=== PATIENT | male | born 1990 ===

== ENCOUNTER 2021-08-20 10:00 | Outpatient (REF) | payer OTHER, SELFPAY ==
[2021-08-21 08:34] LABS: MANUAL DIFF FLAG NO
[2021-08-21 08:37] LABS: Appearance Urine HAZY; Color Urine YELLOW; Glucose Urine UA NEG (NEG); Urine Blood 3+ (NEG); Urine Protein NEG (NEG-TRACE)
[2021-08-21 08:38] LABS: Leukocyte Esterase Urine NEG (NEG); Nitrite Urine NEG (NEG); Urine Ketones NEG (NEG)
[2021-08-21 08:39] LABS: Carbon Dioxide 27 mmol/L (22-29); Chloride 107 mmol/L (96-108); Hematocrit 45.9 % (42.0-52.0); Hemoglobin 15.4 g/dl (14.0-18.0); Mean Corpuscular HGB Conc 33.6 g/dl (31.0-36.0); Mean Corpuscular Hemoglobin 29.7 pg (27.0-33.0); Mean Corpuscular Volume 88.4 fL (80.0-98.0); Potassium 4.5 mmol/L (3.3-5.1); Red Blood Count 5.19 X10*6/uL (4.60-5.80); Sodium 142 mmol/L (135-145); White Blood Count 5.6 X10*3/uL (4.8-10.8)
[2021-08-21 08:40] LABS: Alanine Aminotransferase 36 U/L (0-40); Anion Gap 13 (12-20); Aspartate Amino Transferase 21 U/L (5-37); Basophils Percent Auto 1.3 % (0-2); Bilirubin Total 0.3 mg/dL (0.0-1.0); Blood Urea Nitrogen 14 mg/dL (9-16); Eosinophils Percent Auto 6.3 % (0-4); Estimated Glomerular Filt Rate > 60; Glucose Fasting 113 mg/dL (60-99); Lymphocytes Percent Auto 31.4 % (20-40); Monocytes Percent Auto 11.1 % (2-11); Neutrophils Percent Auto 47.8 % (45-73); Platelet Count 208 X10*3/uL (160-400); Red Cell Distribution Width 12.8 % (11.0-16.0)
[2021-08-21 08:41] LABS: Albumin Level 4.1 g/dL (3.5-5.0); Alkaline Phosphatase 65 U/L (39-117); Cholesterol 171 mg/dL; HDL Cholesterol 43 mg/dL; Imm Gran Abs Auto 0.12 X10*3/uL (0.00-0.03); LDL Cholesterol Calculated 111 mg/dl; Lymphocytes Absolute Auto 1.8 X10*3/uL (1.2-4.9); Neutrophils Absolute Auto 2.7 x10*3/uL (2.0-8.3); Triglycerides 89 mg/dL
[2021-08-21 08:42] LABS: Basophils Absolute Auto 0.1 X10*3/uL (0.0-0.2); Eosinophils Absolute Auto 0.4 X10*3/uL (0.0-0.4); Monocytes Absolute Auto 0.6 X10*3/uL (0.1-1.2)
[2021-08-21 08:43] LABS: Mucus Urine TRACE /LPF; Squamous Epithelial Cell Urine TRACE /LPF; WBC Urine 0-2 /HPF (0-4)
== END 2021-08-20 10:01 | disposition home or self-care (01) ==
LOC: HO.LNP 10:00
PROVIDERS: Visit Provider Internal Medicine
DX: Z00.00 Encounter for general adult medical examination without abnormal findings (principal)
CPT/HCPCS: 80053; 80061; 81001; 85025

== ENCOUNTER 2022-08-15 10:36 | Outpatient (REF) | payer OTHER, SELFPAY ==
[2022-08-15 10:45] LABS: MANUAL DIFF FLAG NO
[2022-08-15 11:38] LABS: Basophils Absolute Auto 0.1 X10*3/uL (0.0-0.2); Basophils Percent Auto 1.2 % (0-2); Eosinophils Absolute Auto 0.5 X10*3/uL (0.0-0.4); Eosinophils Percent Auto 7.8 % (0-4); Hematocrit 47.2 % (42.0-52.0); Hemoglobin 16.3 g/dl (14.0-18.0); Imm Gran Abs Auto 0.03 X10*3/uL (0.00-0.03); Imm Gran Pct Auto 0.5 % (0.0-0.4); Lymphocytes Percent Auto 32.4 % (20-40); Mean Corpuscular HGB Conc 34.5 g/dl (31.0-36.0); Mean Corpuscular Hemoglobin 29.6 pg (27.0-33.0); Mean Corpuscular Volume 85.8 fL (80.0-98.0); Mean Platelet Volume 11.6 fL (9.4-12.4); Monocytes Absolute Auto 0.5 X10*3/uL (0.1-1.2); Monocytes Percent Auto 7.8 % (2-11); Neutrophils Absolute Auto 3.1 x10*3/uL (2.0-8.3); Neutrophils Percent Auto 50.3 % (45-73); Platelet Count 208 X10*3/uL (160-400); Red Cell Distribution Width 12.5 % (11.0-16.0); White Blood Count 6.1 X10*3/uL (4.8-10.8)
[2022-08-15 11:41] LABS: Appearance Urine Clear; Color Urine Yellow; Glucose Urine UA Negative (Negative); Leukocyte Esterase Urine Negative (Negative); Nitrite Urine Negative (Negative); Specific Gravity - Urine <= 1.005 (1.005-1.025); Urine Blood Negative (Negative); Urine Ketones Negative (Negative); Urine Protein Negative (Neg-Trace)
[2022-08-15 11:47] LABS: Bacteria Urine None Seen (None Seen); Hyaline Casts Urine 0-2 /LPF (0-2); RBC Urine 0-2 /HPF (0-2); Squamous Epithelial Cell Urine 0-2 /HPF (0-2); WBC Urine 0-5 /HPF (0-5)
[2022-08-15 11:53] LABS: Alanine Aminotransferase 33 U/L (0-40); Albumin Level 4.4 g/dL (3.5-5.0); Alkaline Phosphatase 74 U/L (39-117); Anion Gap 11 (12-20); Aspartate Amino Transferase 25 U/L (5-37); Bilirubin Total 0.6 mg/dL (0.0-1.0); Blood Urea Nitrogen 18 mg/dL (9-16); Calcium 10.3 mg/dL (8.4-10.2); Carbon Dioxide 30 mmol/L (22-29); Chloride 102 mmol/L (96-108); Cholesterol 189 mg/dL; Estimated Glomerular Filt Rate > 60; Glucose Fasting 117 mg/dL (60-99); HDL Cholesterol 35 mg/dL; LDL Cholesterol Calculated 133 mg/dl; Potassium 4.2 mmol/L (3.3-5.1); Sodium 139 mmol/L (135-145); Total Protein 7.4 g/dL (6.5-8.0); Triglycerides 109 mg/dL
== END 2022-08-15 10:37 | disposition home or self-care (01) ==
LOC: HO.LNP 10:36
PROVIDERS: Visit Provider Internal Medicine
DX: Z00.00 Encounter for general adult medical examination without abnormal findings (principal)
CPT/HCPCS: 80053; 80061; 81001; 85025

== ENCOUNTER 2022-09-27 11:02 | Outpatient (REF) | payer OTHER, SELFPAY ==
[2022-09-27 15:04] LABS: Calcium 9.3 mg/dL (8.4-10.2); Glucose Fasting 97 mg/dL (60-99)
== END 2022-09-27 11:03 | disposition home or self-care (01) ==
LOC: HO.LNP 11:02
PROVIDERS: Visit Provider Internal Medicine
DX: E83.52 Hypercalcemia (principal)
CPT/HCPCS: 82310; 82947

== ENCOUNTER 2023-07-17 08:52 | Outpatient (AMB) | payer OTHER, SELFPAY ==
--- NOTE | 2023-07-17 08:54 | MHC.OFFVIS ---
Vital Signs 07/17/23 08:59 Height 5 ft 6 in Weight 195 lb BMI 31.5 BP 126/70 Blood Pressure Location Rt brachial Position Sitting Pulse 69 Intake Visit Reasons: Reducible umbilical hernia Intake Note: This patient was referred by Dr. Johnson for an assessment for Reducible umbilical hernia. Patient c/o; reports no pain or discomfort, reports bulge on the umbilical region. Machine Wedger Required: No Accompanied by: Self / Same As Patient Allergies No Known Allergies [No Known Allergies*] Allergy (Unverified 07/17/23 09:02) Medication List - Last Reconciled 07/17/23 by Levar Cortez MD cetirizine (Zyrtec) 10 mg PO DAILY PRN HPI HPI Reducible umbilical hernia: Details: 33-year-old male referred for an umbilical hernia. He says that he has had this lump on his umbilicus for about 1-2 years now. He describes some discomfort with this. He says that sometimes this seemed to be bigger other times. He denies any other medical issues. FORMERLY [facility], [facility] Medical History (Updated 07/17/23 @ 09:10 by Levar Cortez MD) Umbilical hernia Surgical History No pertinent past surgical history Family History Other Family history unknown Social History Alcohol intake: never Patient Tobacco Use Status: Never used Tobacco Review of Systems Const Denies chills and Denies fever(s) Card Denies chest pain, Denies dyspnea and Denies dyspnea on exertion Resp Denies cough, Denies dyspnea and Denies dyspnea on exertion GI Denies hematochezia and Denies change in bowel habits Denies hematuria and Denies difficulty urinating Musc Denies back pain and Denies limited range of motion Neuro Denies focal weakness and Denies convulsions Psych Denies depression and Denies mood swings Physical Exam Vital Signs: Last Vital Signs Pulse 69 07/17/23 08:59 BP 126/70 07/17/23 08:59 BMI result Body Mass Index 31.5 Const General: comfortable and no acute distress Orientation/consciousness: patient oriented x3 Neck Neck: Yes no lymphadenopathy Resp Auscultation: clear to auscultation bilaterally Cardio Rhythm: regular rhythm GI Other: Umbilical hernia, reducible, the defect about 1.5 cm in diameter Palpation (GI): Soft to palpation, nontender and no guarding Neuro General: patient oriented x3 Assessment & Plan Assessment & Plan (1) Umbilical hernia: Code(s): K42.9 - Umbilical hernia without obstruction or gangrene Category: Medical Plan: He has a reducible umbilical hernia as described above. He wants to proceed with repair. I explained the technique of repair with mesh placement. I reviewed the risks including but not limited to bleeding, infections, injury to bowel, recurrence, postop pain, as well as the benefits and alternatives I also reviewed with him what to expect postoperatively He says he understands and wants to proceed. Coding Level of Care Code New Pt Level 3 (80895) Diagnoses Umbilical hernia K42.9
[2023-07-17 08:59] VITALS: BP 126/70; PULSE 69; BMI 31.5
== END 2023-07-17 09:17 | disposition home or self-care (01) ==
PROVIDERS: PCP Internal Medicine; Visit Provider Surgery
DX: K42.9 Umbilical hernia without obstruction or gangrene (principal)
CPT/HCPCS: 99203

== ENCOUNTER → 2023-07-17 08:52 | Outpatient (BNVA) | payer OTHER, SELFPAY | PROVIDERS: PCP Internal Medicine; Visit Provider Surgery ==

== ENCOUNTER 2023-09-26 11:16 | Outpatient (REF) | payer OTHER, SELFPAY ==
[2023-09-26 11:19] LABS: MANUAL DIFF FLAG NO
[2023-09-26 11:43] LABS: Appearance Urine Clear; Basophils Absolute Auto 0.1 X10*3/uL (0.0-0.2); Basophils Percent Auto 1.2 % (0-2); Color Urine Yellow; Eosinophils Absolute Auto 0.7 X10*3/uL (0.0-0.4); Eosinophils Percent Auto 11.7 % (0-4); Glucose Urine UA Negative (Negative); Hematocrit 45.2 % (42.0-52.0); Hemoglobin 15.5 g/dl (14.0-18.0); Imm Gran Abs Auto 0.03 X10*3/uL (0.00-0.03); Imm Gran Pct Auto 0.5 % (0.0-0.4); Leukocyte Esterase Urine Negative (Negative); Lymphocytes Absolute Auto 1.6 X10*3/uL (1.2-4.9); Lymphocytes Percent Auto 27.6 % (20-40); Mean Corpuscular HGB Conc 34.3 g/dl (31.0-36.0); Mean Corpuscular Hemoglobin 29.9 pg (27.0-33.0); Mean Corpuscular Volume 87.1 fL (80.0-98.0); Mean Platelet Volume 11.4 fL (9.4-12.4); Monocytes Absolute Auto 0.6 X10*3/uL (0.1-1.2); Monocytes Percent Auto 10.3 % (2-11); Neutrophils Absolute Auto 2.8 x10*3/uL (2.0-8.3); Neutrophils Percent Auto 48.7 % (45-73); Nitrite Urine Negative (Negative); PH 6.5 (5.0-9.0); Platelet Count 187 X10*3/uL (160-400); Red Blood Count 5.19 X10*6/uL (4.60-5.80); Red Cell Distribution Width 13.2 % (11.0-16.0); Urine Blood Negative (Negative); Urine Ketones Negative (Negative); Urine Protein Negative (Neg-Trace); White Blood Count 5.8 X10*3/uL (4.8-10.8)
[2023-09-26 11:48] LABS: Bacteria Urine None Seen (None Seen); Hyaline Casts Urine 0-2 /LPF (0-2); RBC Urine 0-2 /HPF (0-2); Squamous Epithelial Cell Urine 0-2 /HPF (0-2); WBC Urine 0-5 /HPF (0-5)
[2023-09-26 11:58] LABS: Alanine Aminotransferase 35 U/L (0-40); Albumin Level 4.1 g/dL (3.5-5.0); Alkaline Phosphatase 56 U/L (39-117); Anion Gap 9 (12-20); Aspartate Amino Transferase 34 U/L (5-37); Bilirubin Total 0.6 mg/dL (0.0-1.0); Blood Urea Nitrogen 20 mg/dL (9-16); Carbon Dioxide 29 mmol/L (22-29); Chloride 105 mmol/L (96-108); Cholesterol 168 mg/dL (<200); Estimated Glomerular Filt Rate > 60; Glucose Fasting 112 mg/dL (60-99); HDL Cholesterol 40 mg/dL (>40); LDL Cholesterol Calculated 99 mg/dL (<100); Potassium 3.9 mmol/L (3.3-5.1); Sodium 139 mmol/L (135-145); Total Protein 7.1 g/dL (6.5-8.0); Triglycerides 147 mg/dL (<150)
== END 2023-09-26 11:17 | disposition home or self-care (01) ==
LOC: HO.LNP 11:16
PROVIDERS: Visit Provider Internal Medicine
DX: Z00.00 Encounter for general adult medical examination without abnormal findings (principal); E83.52 Hypercalcemia
CPT/HCPCS: 80053; 80061; 81001; 85025

== ENCOUNTER 2023-12-12 07:58 | Day surgery (SDC) | payer OTHER, SELFPAY ==
[2023-11-28 14:28] VITALS: BMI 31.5
--- NOTE | 2023-12-10 13:03 | P.CONAN_ITS ---
HPI - Anesthesia Eval Consult details Narrative: 33yo M for Repair Hernia Umbilical Reducible with mesh PMFSH Active Problems Active Problems: All Active Problems Umbilical hernia (Acute) Past Medical History Medical History Umbilical hernia Family History Family History Other Family history unknown Surgical History Surgical History History of umbilical hernia repair (~12/12/23) [place] teeth extracted Social History Social History Are you a primary childcare center director to a significant other at home: No Do you presently have visiting nurse or other home services: No Alcohol intake: never Patient Tobacco Use Status: Current someday Tobacco user Meds Allergies Allergy/AdvReac Type Severity Reaction Status Date / Time No Known Allergies Allergy Verified 12/22/23 11:08 [No Known Allergies*] Home Medications ?Medication ?Instructions ?Recorded ?Confirmed ?Last Taken ?Type cetirizine 10 mg tablet (Zyrtec) 10 mg PO DAILY PRN Allergic 07/17/23 12/12/23 Unknown History Symptoms Exam Height,Weight and Vital Signs: Height 5 ft 6 in Weight 88.451 kg Pertinent Lab Results Pertinent Lab Results: Laboratory Tests 09/26/23 07:15 WBC 5.8 Hgb 15.5 Hct 45.2 Plt Count 187 Sodium 139 Potassium 3.9 Chloride 105 Carbon Dioxide 29 BUN 20 H Creatinine 1.14 Assessment and Plan Assessment Anesthesia Assessment: Chart Reviewed
[2023-12-10 13:49] VITALS: BMI 31.5
[2023-12-12] VITALS (7 sets, daily range): BP systolic 118–137; BP diastolic 67–91; PULSE 75–85; RESP 16–18; TEMP 36.1–36.6; O2SAT 96–99; BMI 30.7
[2023-12-12] MEDS: Lactated Ringers 1,000 ML 100 ML IVCONT (08:31)
--- NOTE | 2023-12-12 09:33 | HO.ANESPROP2 ---
FORM[facility]LY [facility] Active Problems Active Problems: All Active Problems Umbilical hernia (Acute) Past Medical History Medical History Umbilical hernia Functional capacity: independent ambulation Family History Family History Other Family history unknown Family history of problems with anesthesia: No Surgical History Surgical History [place] teeth extracted History of Problems with Anesthesia: No Social History Social History Are you a primary health care specialist to a significant other at home: No Do you presently have visiting nurse or other home services: No Alcohol intake: never Patient Tobacco Use Status: Current someday Tobacco user Smoked in Last 30 Days: Yes Patient Interested in Nicotine Replacement: No Substance Use Frequency: Occasionally Have you been hit, kicked, punched, or otherwise hurt by someone within the past year? If so, by whom?: No Are you DNR?: No Advance Directives: No Advance Directives Information Provided: Yes Recently lost weight without trying: No Nutrition Risks: No Nutritional Risk Poor oral hygiene: No Meds Allergies Allergy/AdvReac Type Severity Reaction Status Date / Time No Known Allergies Allergy Verified 12/12/23 08:36 [No Known Allergies*] Active Medications: Current Medications Lactated Ringer's (Lr) 1,000 mls @ 100 mls/hr IVCONT .Q10H MARY Last Admin: 12/12/23 08:31 Dose: 100 mls/hr Home Medications ?Medication ?Instructions ?Recorded ?Confirmed ?Last Taken ?Type cetirizine 10 mg tablet (Zyrtec) 10 mg PO DAILY PRN Allergic 07/17/23 12/12/23 Unknown History Symptoms Exam Height,Weight and Vital Signs: Height 5 ft 6 in Weight 86.183 kg Last Vital Signs Temp 97.9 F 12/12/23 08:38 Pulse 80 12/12/23 08:38 Resp 18 12/12/23 08:38 BP 126/83 12/12/23 08:38 Pulse Ox 99 12/12/23 08:38 O2 Del Method Room Air 12/12/23 08:38 Airway Mallampati Class: II TM Dist: >3cm Neck ROM: Full Heart: RRR Lungs: CTA Assessment and Plan Assessment Anesthesia Assessment: Anesthesia Plan Discussed, Smoking Cess. Discussed and Chart Reviewed Final Anesthetic Review Family History of Problems with Anesthesia: No History of Problems with Anesthesia: No NPO: Yes ASA Class: II Final Preanesthetic Review: Meds/Allgs Chart Reviewed, Consent Obtained/Reviewed and Anes Risks/Benef Reviewed Patient Risk: Low Procedure Risk: Low Anesthetic Plan Anesthetic Plan: GA Disposition: Standard PACU
--- NOTE | 2023-12-12 09:57 | MHC.SHP ---
Pre-Procedural Eval Section A - 24 Hr Update-Section A only Date of Service: 12/12/23 Section B - Complete if H&P > 30 days Chief Complaint: Umbilical hernia without obstruction or gangrene Details of Present Illness: has had reducible umbilical hernia Relevant Family History (Specify if Yes): No Relevant Social History: None Present Medications: see Short Stay Collaborative assessment Medical History: No relevant PMH Allergies: Allergies Allergy/AdvReac Type Severity Reaction Status Date / Time No Known Allergies Allergy Verified 12/12/23 08:36 [No Known Allergies*] Review of Systems Sugical H&P ROS: Negative: Constitution, Cardiovascular, Respiratory and Gastrointestinal Exam Surgical H&P Exam: Normal: Heart and Normal: Lungs and Significant Findings: Abdomen (small umbilical hernia) Plan Diagnosis/Plan: Unchanged I have reviewed the history and physical and performed a pertinent physical examination on my patient. No changes have occurred unless specified. Time Spent With Patient Time: Total time managing care of this patient today ____ minutes.
--- NOTE | 2023-12-12 10:54 | W.PM.OPN ---
Operative Note Operative Note Date of Service: 12/12/23 Narrative: Preop diagnosis: Umbilical hernia, non reducible Postop diagnosis: Umbilical hernia, non reducible, fat containing Procedure: Repair of nonreducible umbilical hernia, with Ventralex mesh Surgeon: Levar Cortez MD economic research assistant: PITA Ardon The patient is a 33-year-old male with an umbilical hernia, not reducible. In view of symptoms he wanted to proceed with repair. He understood the technique of the planned procedure as well as the risks, benefits, and alternatives. He was brought to the operating room. He was placed supine under general anesthesia via laryngeal mask airway. The abdomen was prepped and draped in the usual sterile fashion. A surgical time-out was done. The patient received cefazolin 2 g IV preoperatively I infiltrated my planned line of incision with lidocaine 1%. I made a supraumbilical curvilinear transverse incision using blade 15. This was carried down through the full-thickness of the skin subcutaneous fat with electrocautery. I lifted umbilicus as a flap and gently this from the hernia contents using sharp dissection with Metzenbaum scissors and electrocautery. By doing so was able to carefully dissect the hernia all the way to the fascial edge. There was note of a lot of adhesions tethering the hernia contents to the fascial edge so I had to do careful lysis of adhesions with electrocautery. The hernia was fat containing. I was then eventually able to reduce this completely to the hernia defect. The hernia defect was about 2 cm in diameter. There was note of some oozing on 1 area of the omental fat so I applied a Polysorb 3-0 tie around this. I applied a Morena clamp on the fascial edge to retract this. The margins were clear of adhesions. I positioned a small-sized Ventralex mesh under the fascia. This was flattened intraperitoneally. I secured the Prolene straps of the mesh to the fascial edge on both sides with Prolene 2 sutures. I closed the fascial defect with a [id number] 1 stitch. The umbilicus was tacked down to the fascia with a Polysorb 3-0 stitch to re-create the dimple. The subcutaneous layer was reapposed with 3-0 sutures. Skin closure was achieved with Polysorb 4-0 subcuticular running stitch The area was infiltrated with Marcaine 0.5% for postop analgesia. Dressings were applied and the procedure was completed. The patient tolerated the procedure well. There were no immediate complications. Initial and final counts of sponges and instruments were correct. Estimated blood loss was about 20 cc. The patient was extubated without difficulty and transferred to the recovery with stable vital signs.
--- NOTE | 2023-12-12 13:07 | HO.POSTANES ---
Post Anesthesia Evaluation Post Anesthesia Evaluation Date of Service: 12/12/23 Vital Signs: Vital Signs Temp Pulse Resp BP Pulse Ox O2 Del Method 12/12/23 11:55 97 F 84 16 137/67 98 Room Air 12/12/23 11:40 84 16 136/85 98 Room Air 12/12/23 11:25 85 16 118/81 98 Room Air 12/12/23 11:20 75 16 127/81 96 Room Air 12/12/23 11:15 75 16 125/91 H 99 Room Air 12/12/23 11:12 97 F 83 16 136/88 99 Room Air 12/12/23 08:38 97.9 F 80 18 126/83 99 Room Air Anesthesia: General LMA Mental Status: Awake Pain Control: Satisfactory Nausea/Vomiting: None Hydration: Adequate Anesthesia-Related Issues: No Anes. Related Issues
== END 2023-12-12 12:22 | disposition home or self-care (01) ==
PROVIDERS: PCP Internal Medicine; Visit Provider Surgery
PROC: (CPT 49591; principal; 2023-12-12 10:10)
DX: K42.0 Umbilical hernia with obstruction, without gangrene (principal); K66.0 Peritoneal adhesions (postprocedural) (postinfection); Z79.899 Other long term (current) drug therapy; F17.210 Nicotine dependence, cigarettes, uncomplicated
CPT/HCPCS: 49591; C1781; J0690; J1100; J1885; J2003; J2250; J2405; J2704; J2795; J3010

== ENCOUNTER → 2023-12-12 07:58 | Outpatient (BNV) | payer OTHER, SELFPAY | PROVIDERS: PCP Internal Medicine; Visit Provider Surgery | DX: K42.0 Umbilical hernia with obstruction, without gangrene (principal) | CPT/HCPCS: 49592 ==

== ENCOUNTER 2023-12-22 10:58 | Outpatient (AMB) | payer OTHER, SELFPAY ==
--- NOTE | 2023-12-22 11:02 | MHC.OFFVIS ---
Vital Signs 12/22/23 11:08 Height 5 ft 9 in Weight 194 lb BMI 28.6 Intake Visit Reasons: s/p Hernia Umbilical Reducible Intake Note: This patient presents for post-op repair non-reducible umbilical hernia, ventralex mesh. Pt c/o; reports fullness sensation without eating. Processing Archivist Required: No Accompanied by: Self / Same As Patient Allergies No Known Allergies [No Known Allergies*] Allergy (Verified 12/22/23 11:08) HPI HPI s/p Hernia Umbilical Reducible: Details: He underwent repair of an umbilical hernia with Ventralex mesh last 12/12/2023. He tolerated the procedure well. He is here for postop visit. He feels well overall and denies significant complaints. [facility], [facility] Medical History Umbilical hernia Surgical History History of umbilical hernia repair (~12/12/23) [place] teeth extracted Family History Other Family history unknown Social History Are you a primary adult caregiver to a significant other at home: No Do you presently have visiting nurse or other home services: No Alcohol intake: never Patient Tobacco Use Status: Current someday Tobacco user Review of Systems Const Denies chills and Denies fever(s) Card Denies chest pain Resp Denies cough GI Denies abdominal pain Physical Exam Vital Signs: BMI result Body Mass Index 28.6 Const General: comfortable and no acute distress Resp Effort & Inspection: normal respiratory effort GI Other: Incision clean and dry and well healing, repair intact Palpation (GI): Soft to palpation, not firm, nontender and no guarding Assessment & Plan Assessment & Plan (1) Umbilical hernia: Code(s): K42.9 - Umbilical hernia without obstruction or gangrene Category: Medical Plan: Status post repair. He is doing very well postoperatively. The incision is well healed. The repair site is intact. I advised him to avoid lifting anything more than 20 lb for about 2 more weeks. He can otherwise follow up on a p.r.n. basis. Coding Level of Care Code Global (89608) Diagnoses Umbilical hernia K42.9
[2023-12-22 11:08] VITALS: BMI 28.6
== END 2023-12-22 11:39 | disposition home or self-care (01) ==
PROVIDERS: PCP Internal Medicine; Visit Provider Surgery
DX: K42.9 Umbilical hernia without obstruction or gangrene (principal)
CPT/HCPCS: 99212

== ENCOUNTER → 2023-12-22 10:58 | Outpatient (BNVA) | payer OTHER, SELFPAY | PROVIDERS: PCP Internal Medicine; Visit Provider Surgery ==

== ENCOUNTER 2024-11-25 11:10 | Outpatient (REF) | payer OTHER, SELFPAY ==
--- OUTSIDE RECORDS SUMMARY | 2023-08-25 04:24 | XMS_ITS ---
Author Organization Cruz Johnson MD Address [address] [place] [phone] Care Team Providers Care Web Database Developer Name Role Phone Cruz Johnson Primary Care Provider REASON FOR VISIT Suspect Risk Codes Encounters Encounter Location Date Provider Diagnosis Curz Johnson MD [address] [place] [address] [place] [phone] 08/25/2023 Cruz Johnson Plan Of Treatment Next Appt Details Provider Name:Cruz Camacho ier, 12/09/2024 09:00:00 AM, [address] [place] [address], [address], [place], [place], [phone], Progress Notes * Ulysses MOSSOB:1989 (33 yo M)Acc No.[id number]:08/25/2023 Patient: Jac wyattjuniorJuaquin goodwin :1990 A ge:33 Y S ex:Male Address:[address] [place] [address], [id number] * true * Date: Generated for Billyi deonte/Zulema/eTransmitting on: 01:05 PM EDT
--- OUTSIDE RECORDS SUMMARY | 2023-09-26 03:15 | XMS_ITS ---
Author Organization Cruz Johnson MD Address [address] [place] [address] Drive [address] [place] [phone] Care Team Providers Care Supervisor Vat House Name Role Phone Cruz Johnson Primary Care Provider REASON FOR VISIT FASTING LABS Encounters Encounter Location Date Provider Diagnosis Cruz Johnson MD [address] [place] [address] [place] [phone] 09/26/2023 Cruz Johnson Blood tests for routine general physical examination Z00.00 and Hypercalcemia E83.52 Assessments Encounter Date Diagnosis (ICD Code) Assessment Notes Treatment Notes Treatment Clinical Notes Section Notes 09/26/2023 Blood tests for routine general physical examination (ICD-10 - Z00.00) 09/26/2023 Hypercalcemia (ICD-10 - E83.52) Plan Of Treatment Next Appt Details Provider Name:Cruz Camacho ier, 12/09/2024 09:00:00 AM, [address] [place] [address], [place] [address], [place], [place], [phone], Progress Notes * Timothy MOSSyDOB:1989 (34 yo M)Acc No.[id number]:09/26/2023 Progress Note Patient: Juaquin PHILIPPE Provider: Jake Johnson MD :1990 A ge:33 Y S ex:Male Date:09/26/2023 Address:[address] [place] [address] ie, [place] [address] Subjective: * Chief Complaints: * 1 . FASTING LABS. * Medical History: Objective: * Vitals: Assessment: * Assessment: 1. B lood tests for routine general physical examination - Z00.00 (Primary) 2 .?Hypercalcemia - E83.52 Plan: * Treatment: 2. H ypercalcemia L AB: Complete Blood Count Auto Diff (Order Cancelled) L AB: Comprehensive [place]. Panel Fast (Order Cancelled) L AB: Lipid Panel (Order Cancelled) L AB: UA ClnCatch+Micro w/rflx Cult (Order Cancelled) * Procedure Codes: 3 6415 VENIPUNCT, ROUTINE* * * The named appointment provid er may or may not be the originator of this progress note, and it is not deemed complete until electronically signed by the appointment provider. Sign off status: Pending * Provider: Jake Johnson MD Date: 0 09/26/2023 Generated for Loc clemons/Zulema/Salvatoreitting on: 1 01:05 PM EDT
--- OUTSIDE RECORDS SUMMARY | 2023-11-04 11:41 | XMS_ITS ---
Author Organization Cruz Johnson MD Address [address] [facility] [address] [place] [phone] Care Team Providers Care Oxide Furnace Tender Name Role Phone Cruz Johnson Primary Care Provider REASON FOR VISIT FYI chest x-ray Encounters Encounter Location Date Provider Diagnosis Cruz Johnson MD [address] [place] [address] [address] [place], [place] [phone] 11/04/2023 Cruz Johnson Plan Of Treatment Next Appt Details Provider Name:Cruz Camacho ier, 12/09/2024 09:00:00 AM, [address] [place] [address], [address], [place], [place], [phone], Progress Notes * Ulysses MOSSOB:1989 (34 yo M)Acc No.[id number]:11/04/2023 Patient: Jac wyattjuniorJuaquin goodwin :1990 A ge:33 Y S ex:Male Address:[address] [place] [address], [id number] * true * Date: Generated for Loc clemons/Zulema/eTransmitting on: 01:05 PM EDT
--- OUTSIDE RECORDS SUMMARY | 2023-12-01 05:30 | XMS_ITS ---
Author Organization Cruz Johnson MD Address [address] [place], [place] [phone] Care Team Providers Care Engineer Internship Name Role Phone Cruz Johnson Primary Care Provider Allergies No Known Allergies REASON FOR VISIT ANNUAL EXAM, chest x-ray never done from 04/2023 Medications Medication SIG (Take, Route, Frequency, Duration) Notes Start Date End Date Status Claritin-D 24 Hour 10-240 MG 1 tablet Orally Once a day for 30 day(s) Active Clobetasol Propionate 0.05 % 1 application Externally Twice a day for 10 day(s) 10/17/2022 Not-Taking Benadryl Allergy 25 MG 1 capsule at bedt alonzo as needed Orally Once a day for 30 day(s) Not-Taking Peggy Allergy 180 MG 1 tablet Swallow whole with water; do not take with fruit juices. Orally Once a day for 30 day(s) Not-Taking Immunizations Vaccine Route Administration Date Status Comme nts Fluarix Quadrivalent - 150 Unknown 12/01/2023 Refused Social History Tobacco Use: Social History Observation Description Date Details (start date - stop date) Former Smoker NA - NA Tobacco Use/Smoking Question Answer Notes Patient is a former smoker How long has it been since y ou last smoked? 1-5 years Additional Findings: Tobacco Non-User Fo rmer smoker, currently using no form of tobacco Alcohol Screen Question Answer Notes Did you have a drink contain ing alcohol in the past year? Yes How often did you have a dri nk containing alcohol in the past year? 4 or more times a week (4 points) How many drinks did you have on a typical day when you were drinking in the past year? 1 or 2 drinks (0 point) How often did you have 6 or more drinks on one occasion in the past year? Never (0 point) Points 4 Interpretation Positive Vital Signs Blood pressure systolic 98 mm Hg 12/01/19 24 Blood pressure diastolic 62 mm Hg 024 Height 68.5 in 12/01/2023 Weight 192 lbs 12/01/2023 BMI 28.77 kg/m2 12/01/2023 Encounters Encounter Location Date Provider Diagnosis Cruz Johnson MD [address] [place] [address] Drive [address] [place] [phone] 12/01/2023 Cruz Johnson Personal history of pneumonia Z87.01 ; Annual physical exam Z00.00 ; Elevated fasting blood sugar R73.01 and Depression screening Z13.31 Assessments Encounter Date Diagnosis (ICD Code) Assessment Notes Treatment Notes Treatment Clinical Notes Section Notes 12/01/2023 Personal history of pneumonia (ICD-10 - Z87.01) ORDER PRINTED AND GIVEN TO PATIENT, pending diagnostic testing 12/01/2023 Annual physical exam (ICD-10 - Z00.00) labs reviewed and discussed with patient 12/01/2023 Elevated fasting blood sugar (ICD-10 - R73.01) maintain good weight, stable 12/01/2023 Depression screening (ICD-10 - Z13.31) negative screen Plan Of Treatment Treatment Notes Assessment Notes Personal history of pneumonia ORDER PRIN TEENA AND GIVEN TO PATIENT, pending diagnostic testing Annual physical exam labs reviewed and d iscussed with patient Elevated fasting blood sugar maintain go od weight, stable Depression screening negative screen Pending Test Test Name Order Date XR CHEST 2 VIEW PA & LAT 12/01/2023 Next Appt Details Follow Up: 1 Year, Reason: Provider Name:Cruz Camacho iegarrett, 12/09/2024 09:00:00 AM, [address] [place] [address] Drive, [address], [place], [place], [phone], Progress Notes * Ulysses MOSSOB:1989 (33 yo M)Acc No.[id number]:12/01/2023 Progress Notes Patient: Jac Juaquin pacheco Provider: Jake Johnson MD :1990 A ge:33 Y S ex:Male Date:12/01/2023 Address:[address] [place] [address] , [id number] Subjective: * Chief Complaints: * A NNUAL EXAMChest x-ray never done from 04/2023 * HPI: D epression Screening: PHQ-9 L ittle interest or pleasure in doing things N ot at all, F eeling down, depressed, or hopeless N ot at all, T rouble falling or staying asleep, or sleeping too much N ot at all, F eeling tired or having little energy N ot at all, P oor appetite or overeating N ot at all, F eeling bad about yourself or that you are a failure, or have let yourself or your family down N ot at all, T rouble concentrating on things, such as reading the newspaper or watching television N ot at all, M oving or speaking so slowly that other people could have noticed; or the opposite, being so fidgety or restless that you have been moving around a lot more than usual N ot at all, T houghts that you would be better off or of hurting yourself in some way N ot at all, T otal Score 0 . I nterpretation and Intervention D epression Screening Findings N egative, F ollow-Up for Depression : review of PHQ-9 found negative result, no follow-up needed. C ommunication Needs: Communication Needs D oes the patient have a hearing impairment N o, D oes the patient have a vision impairment? N o, D oes the patient have a cognition impairment? N o. S ADAL Questions: SDOH Questions I n the past year have you been worried about losing housing? N o, I n the past year have you or any family members you live with been unable to get any of the following when it was really needed? Check all that apply: N one. S ymptom(s): patient is a 33 yo male here for annual visit with review of recent labs and follow up of chronic issues. * ROS: G eneral/Constitutional: Patient denies f atigue , headache. C hange in appetite?denies. C hills d enies. F ever d enies. O phthalmologic: Blurred vision d enies. D ischarge d enies. P ain d enies. E NT: Patient denies d ecreased sense of smell , any loss of taste , sore throat. D ecreased hearing d enies. S ore throat d enies. S wollen glands d enies. E ndocrine: Cold intolerance d enies. E xcessive thirst d enies. H eat intolerance d enies. W eight loss d enies. R espiratory: Cough d enies. S hortness of breath at rest d enies. S hortness of breath with exertion d enies. W heezing d enies. C ardiovascular: Chest pain at rest d enies. C hest pain with exertion?denies. I rregular heartbeat d enies. S hortness of breath d enies. ? G astrointestinal: Abdominal pain d enies. C hange in bowel habits d enies. D iarrhea d enies. N ausea d enies. R ectal bleeding d enies. V omiting d enies . G enitourinary: Blood in urine d enies. D ifficulty urinating d enies. F requent urination d enies. M usculoskeletal: Patient denies m uscle aches. P ainful joints d enies. W eakness d enies. P eripheral Vascular: Patient denies r ed and blue toes. S kin: Dry skin d enies. I tching d enies. D enies?Mole(s), changes in moles, new moles or any lesions of concern. D enies P hotosensitivity. R javier d enies. N eurologic: Dizziness d enies. F ainting d enies. H eadache?denies. * Medical History: * Surgical History: * Hospitalization/Major Diagno stic Procedure: * Family History: F ather: alive 63 yrs. M other: 34 yrs. 3 brother(s) , 2 sister(s) . 1 daughter(s) . . Mother kidney Failure, Denies mental health/substance abuse family history, Denies mental health/substance abuse family history, Denies mental health/substance abuse family history. * Social History: T obacco Use: T obacco Use/Smoking P atient is a f ormer smoker, H ow long has it been since you last smoked? 1 -5 years, A dditional Findings: Tobacco Non-User F ormer smoker, currently using no form of tobacco. D rugs/Alcohol: A lcohol Screen D id you have a drink containing alcohol in the past year? Y es, H ow often did you have a drink containing alcohol in the past year? 4 or more times a week (4 points), H ow many drinks did you have on a typical day when you were drinking in the past year? 1 or 2 drinks (0 point), H ow often did you have 6 or more drinks on one occasion in the past year? N ever (0 point), P oints 4 , I nterpretation P ositive. M iscellaneous: C affeine: yes, frequency:, 3-4 cups per day. Children: yes. no Community involvements. Exercise: yes, gym Cardio 3 times a week. Home smoke detector use: yes. Housing: owning. Living with: spouse. Marital status: . Occupation: weeks/months/years, works full-time. Pets: none. no Travel outside of the [place]. * Medications: T akingClaritin-D 24 Hour 10-240 MG Tablet Extended Release 24 Hour 1 tablet Orally Once a dayTaking Claritin-D 24 Hour 10-240 MG Tablet Extended Release 24 Hour 1 tablet Orally Once a dayNot-Taking/PRNClobetasol Propionate 0.05 % Cream 1 application Externally Twice a dayBenadryl Allergy 25 MG Capsule 1 capsule at bedtime as needed Orally Once a dayAllegra Allergy 180 MG Tablet 1 tablet Swallow whole with water; do not take with fruit juices. Orally Once a dayMedication List reviewed and reconciled with the patientNot-Taking/PRN Clobetasol Propionate 0.05 % Cream 1 application Externally Twice a dayNot-Taking/PRN Benadryl Allergy 25 MG Capsule 1 capsule at bedtime as needed Orally Once a dayNot-Taking/PRN Peggy Allergy 180 MG Tablet 1 tablet Swallow whole with water; do not take with fruit juices. Orally Once a dayMedication List reviewed and reconciled with the patient * Allergies: N .K.D.A.yes[Allergies Verified] Objective: * Vitals: H t: 68.5, Wt:192, BMI:28.77, BP:98/62. * P ast Orders: L ab:Comprehensive [place]. Panel Fast (Order Date - 09/26/2023) (Collection Date - 09/26/2023) Value Reference Range Sodium 139 135-145 - mmol/L Bilirubin Total 0.6 0.0-1.0 - mg/dL Aspartate Amino Transferase 34 5-37 - U/L Alanine Aminotransferase 35 0-40 - U/L Total Protein 7.1 6.5-8.0 - g/dL Albumin Level 4.1 3.5-5.0 - g/dL Alkaline Phosphatase 56 39-117 - U/L Potassium 3.9 3.3-5.1 - mmol/L Chloride 105 96-108 - mmol/L Carbon Dioxide 29 22-29 - mmol/L Anion Gap 9 L 12-20 - Blood Urea Nitrogen 20 H 9-16 - mg/dL Creatinine 1.14 0.5-1.4 - mg/dL Estimated Glomerular Filt Rate > 60 - Glucose Fasting 112 H 60-99 - mg/dL Calcium 9.0 8.4-10.2 - mg/dL L ab:Lipid Panel (Order Date - 09/26/2023) (Collection Date - 09/26/2023) Value Reference Range Triglycerides 147 <150 - mg/dL Cholesterol 168 <200 - mg/dL LDL Cholesterol Calculated 99 <100 - mg/dL HDL Cholesterol 40 L >40 - mg/dL L ab:UA ClnCatch+Micro w/rflx Cult (Order Date - 09/26/2023) (Collection Date - 09/26/2023) Value Reference Range Color Urine Yellow - Appearance Urine Clear - PH 6.5 5.0-9.0 - Glucose Urine UA Negative Negative - mg/dL Urine Blood Negative Negative - Specific [place] - Urine 1.020 1.005-1.025 - Urine Protein Negative Neg-Trace - mg/dL Urine Ketones Negative Negative - mg/dL Nitrite Urine Negative Negative - Leukocyte Esterase Urine Negative Negative - RBC Urine 0-2 0-2 - /HPF WBC Urine 0-5 0-5 - /HPF Squamous Epithelial Cell Urine 0-2 0-2 - /HP F Bacteria Urine None Seen None Seen - Hyaline Casts Urine 0-2 0-2 - /LPF L ab:Complete Blood Count Auto Diff (Order Date - 09/26/2023) (Collection Date - 09/26/2023) Value Reference Range White Blood Count 5.8 4.8-10.8 - X10*3/uL Red Blood Count 5.19 4.60-5.80 - X10*6/uL Hemoglobin 15.5 14.0-18.0 - g/dl Hematocrit 45.2 42.0-52.0 - % Mean Corpuscular Volume 87.1 80.0-98.0 - fL Mean Corpuscular Hemoglobin 29.9 27.0-33.0 - pg Mean Corpuscular HGB Conc 34.3 31.0-36.0 - g/ dl Red Cell Distribution Width 13.2 11.0-16.0 - % Platelet Count 187 160-400 - X10*3/uL Mean Platelet Volume 11.4 9.4-12.4 - fL Neutrophils Percent Auto 48.7 45-73 - % Imm Gran Pct Auto 0.5 H 0.0-0.4 - % Lymphocytes Percent Auto 27.6 20-40 - % Monocytes Percent Auto 10.3 2-11 - % Eosinophils Percent Auto 11.7 H 0-4 - % Basophils Percent Auto 1.2 0-2 - % NRBC Pct Auto 0.0 0.0-0.2 - /100WBC Neutrophils Absolute Auto 2.8 2.0-8.3 - x10* 3/uL Imm Gran Abs Auto 0.03 0.00-0.03 - X10*3/uL Lymphocytes Absolute Auto 1.6 1.2-4.9 - X10* 3/uL Monocytes Absolute Auto 0.6 0.1-1.2 - X10*3/ uL Eosinophils Absolute Auto 0.7 H 0.0-0.4 - X10* 3/uL Basophils Absolute Auto 0.1 0.0-0.2 - X10*3/ uL NRBC Abs Auto 0.000 0.0-0.012 - X10*3/uL * Examination: G eneral Examination: GENERAL APPEARANCE: w ell developed, well nourished, in no acute distress. HEAD: n ormocephalic, atraumatic. EYES: p upils equal, round, reactive to light and accommodation, sclera non-icteric. EARS: n ormal. ORAL CAVITY: m ucosa moist. THROAT: c lear. NECK/THYROID: n ev supple, full range of motion, no cervical lymphadenopathy, no bruits. SKIN: w arm and dry, no suspicious lesions. HEART: r egular rate and rhythm, S1, S2 normal, no murmurs.? LUNGS: c lear to auscultation bilaterally. ABDOMEN: s oft, nontender, nondistended, bowel sounds present, normal, no organomegaly , no masses palpable. MALE GENITOURINARY: n o penile lesions or discharge, no testicular mass, testes descended bilaterally. EXTREMITIES: n o clubbing, cyanosis, or edema. NEUROLOGIC: n onfocal, motor strength normal upper and lower extremities, sensory exam intact. Assessment: * Assessment: 1. A nnual physical exam - Z00.00 (Primary) 2 . P ersonal history of pneumonia - Z87.01?3. E levated fasting blood sugar - R73.01 4 . D epression screening - Z13.31 Plan: * Treatment: 2. P ersonal history of pneumonia I maging: XR CHEST 2 VIEW PA & LAT Notes: ORDER PRINTED AND GIVEN TO PATIENT, pending diagnostic testing 3. E levated fasting blood sugar Notes: maintain good weight, stable 4. D epression screening Notes: negative screen * Immunizations: Fluarix Quadrivalent - 150 (Not administered - Refused: Patient decision) * Procedure Codes: * Preventive Medicine: Counseling: C are goal follow-up plan: C ounseling for abnormal BMI provided?Yes, A arnaldo Normal BMI Follow-up G iving encouragement to exercise. Immunizations: I nfluenza H ave you had a flu shot since the most recent October 25? N o patient refused at visit today. * Follow Up: 1 Year * * Sign off status: Completed true * Provider: Jake Johnson MD Date: Generated for Loc clemons/Zulema/Salvatoreitting on: 01:04 PM EDT History and Physical Notes * HPI (History of Present Illness) Category Sub-Category Detail Notes Category Not es Symptom(s) patient is a 33 yo male here for annual visit with review of recent labs and follow up of chronic issues. Depression Screening PHQ-9 Little inte rest or pleasure in doing things: Not at all Feeling down, depressed, or hopeless: No t at all Trouble falling or staying asleep, or sl eeping too much: Not at all Feeling tired or having little energy: N ot at all Poor appetite or overeating: Not at all Feeling bad about yourself o r that you are a failure, or have let yourself or your family down: Not at all Trouble concentrating on thi ngs, such as reading the newspaper or watching television: Not at all Moving or speaking so slowly that other people could have noticed; or the opposite, being so fidgety or restless that you have been moving around a lot more than usual: Not at all Thoughts that you would be b ed off or of hurting yourself in some way: Not at all Total Score: 0 Interpretation and Intervention Depression Deborahe andreia Findings: Negative Follow-Up for Depression: : review of PH Q-9 found negative result, no follow-up needed SDOH Questions SDOH Questions In the past year have you been worried about losing housing?: No In the past year have you or any family members you live with been unable to get any of the following when it was really needed? Check all that apply:: None Communication Needs Communication Needs Does the patient have a hearing impairment: No Does the patient have a vision impairmen t?: No Does the patient have a cognition impair ment?: No Examination Category Sub-Category Detail Notes Category Not es General Examination GENERAL APPEARANCE: well dev eloped, well nourished, in no acute distress HEAD: normocephalic, atrau matic EYES: pupils equal, round, reactive to light and accommodation, sclera non-icteric EARS: normal THROAT: clear NECK/THYROID: neck supple, full ra nge of motion, no cervical lymphadenopathy, no bruits HEART: regular rate and rhy thm, S1, S2 normal, no murmurs LUNGS: clear to auscultatio n bilaterally ABDOMEN: soft, nontender, non distended, bowel sounds present, normal, no organomegaly , no masses palpable NEUROLOGIC: nonfocal, motor stre ngth normal upper and lower extremities, sensory exam intact SKIN: warm and dry, no shayan picious lesions EXTREMITIES: no clubbing, cyanosi s, or edema MALE GENITOURINARY: no penile lesions or discharge, no testicular mass, testes descended bilaterally RECTAL EXAM: ORAL CAVITY: mucosa moist
--- OUTSIDE RECORDS SUMMARY | 2024-11-25 03:15 | XMS_ITS ---
Author Organization Cruz Johnson MD Address [address] [place] [phone] Care Team Providers Care Terrazzo Laborer Name Role Phone Cruz Johnson Primary Care Provider REASON FOR VISIT FASTING LABS Encounters Encounter Location Date Provider Diagnosis Cruz Johnson MD [address] [place] [address] [place] [phone] 11/25/2024 Cruz Johnson Blood tests for routine general physical examination Z00.00 and Hypercalcemia E83.52 Assessments Encounter Date Diagnosis (ICD Code) Assessment Notes Treatment Notes Treatment Clinical Notes Section Notes 11/25/2024 Blood tests for routine general physical examination (ICD-10 - Z00.00) 11/25/2024 Hypercalcemia (ICD-10 - E83.52) Plan Of Treatment Pending Test Test Name Order Date Complete Blood Count Auto Diff 5 Comprehensive [place]. Panel Fast 5 Lipid Panel 11/25/2024 UA ClnCatch+Micro w/rflx Cult 11/25/2024 Next Appt Details Provider Name:Cruz Camacho ier, 12/09/2024 09:00:00 AM, [address] [place] [address], Suite [facility], [place], [place], [phone], Progress Notes * Ulysses MOSSOB:1989 (34 yo M)Acc No.[id number]:11/25/2024 Progress Note Patient: Jac ABREUSHIVJuaquin BAI Provider: Jake Johnson MD :1990 A ge:34 Y S ex:Male Date:11/25/2024 Address:[address] [place] [address], [id number] Subjective: * Chief Complaints: * 1 . FASTING LABS. * Medical History: Objective: * Vitals: Assessment: * Assessment: 1. B lood tests for routine general physical examination - Z00.00 (Primary) 2 .?Hypercalcemia - E83.52 Plan: * Treatment: 2. H ypercalcemia L AB: Complete Blood Count Auto Diff L AB: Comprehensive [place]. Panel Fast L AB: Lipid Panel L AB: UA ClnCatch+Micro w/rflx Cult * Procedure Codes: 3 6415 VENIPUNCT, ROUTINE* * * The named appointment provid er may or may not be the originator of this progress note, and it is not deemed complete until electronically signed by the appointment provider. Sign off status: Pending * Provider: Jake Johnson MD Date: Generated for Loc clemons/Zulema/Salvatoreitting on: 01:04 PM EDT
[2024-11-25 11:13] LABS: MANUAL DIFF FLAG NO
[2024-11-25 11:19] LABS: Hematocrit 46.8 % (42.0-52.0); Hemoglobin 16.2 g/dl (14.0-18.0); Imm Gran Abs Auto 0.05 X10*3/uL (0.00-0.03); Imm Gran Pct Auto 0.8 % (0.0-0.4); Lymphocytes Absolute Auto 2.0 X10*3/uL (1.2-4.9); Mean Corpuscular HGB Conc 34.6 g/dl (31.0-36.0); Mean Corpuscular Hemoglobin 29.8 pg (27.0-33.0); Mean Corpuscular Volume 86.2 fL (80.0-98.0); NRBC Abs Auto 0.000 X10*3/uL (0.0-0.012); NRBC Pct Auto 0.0 /100WBC (0.0-0.2); Platelet Count 208 X10*3/uL (160-400); Red Blood Count 5.43 X10*6/uL (4.60-5.80); White Blood Count 6.1 X10*3/uL (4.8-10.8)
[2024-11-25 11:22] LABS: Appearance Urine Clear; Glucose Urine UA Negative (Negative); PH 6.0 (5.0-9.0); Specific Gravity - Urine 1.025 (1.005-1.025)
[2024-11-25 11:32] LABS: Alanine Aminotransferase 58 U/L (0-40); Albumin Level 4.1 g/dL (3.5-5.0); Alkaline Phosphatase 92 U/L (39-117); Anion Gap 11 (12-20); Aspartate Amino Transferase 52 U/L (5-37); Blood Urea Nitrogen 16 mg/dL (9-16); Calcium 9.2 mg/dL (8.4-10.2); Carbon Dioxide 29 mmol/L (22-29); Chloride 104 mmol/L (96-108); Cholesterol 167 mg/dL (<200); Estimated Glomerular Filt Rate > 60; HDL Cholesterol 33 mg/dL (>40); Potassium 3.8 mmol/L (3.3-5.1); Sodium 140 mmol/L (135-145); Total Protein 7.1 g/dL (6.5-8.0); Triglycerides 375 mg/dL (<150)
--- OUTSIDE RECORDS SUMMARY | 2024-11-25 13:05 | XMS_ITS | Clinical Summary ---
Author Organization [facility] Address [address] [place] [phone] Phone Care Team Providers Care Instant Potato Processor Name Role Phone Pcp, Unknown Primary Care Provider Unavailabl e Social History Tobacco Use Types Packs/Day Years Used Date Smoking Tobacco: Never Assessed Education Answer Date Recorded Are you interested in more education? Not on gypsy e 06/21/2022 Are you concerned about learning? Not on file 06/21/2022 No 06/21/2022 No 06/21/2022 Digital Access Answer Date Recorded No 07/20/2022 No 07/20/2022 No 07/20/2022 Reliable internet access at home? Not on file 07/20/2022 Device with a working camera? Not on file Sex and Gender Information Value Date Recorded Sex Assigned at Not on file Legal Sex Male 2:56 PM EST Gender Identity Not on file Sexual Orientation Not on file Plan of Treatment Health Maintenance Due Date Last Done Comments Adult Td,Tdap Booster 1990 DEPRESSION SCREENING 2003 SMOKING Hx and SMOKELESS TOB ACCO SCREENING 01/04/2004 HEPATITIS C SCREENING 2009 HIV ONE-TIME SCREENING (18-6 5 YEARS) 2009 INFLUENZA VACCINE (#1) 2024 COVID-19 VACCINE (2024-2 6 season) 2024 08/02/2020 HEPATITIS A VACCINES Aged Out No long er eligible based on patient's age to complete this topic HIB VACCINES Aged Out No longer eligi ble based on patient's age to complete this topic MENINGOCOCCAL VACCINES (ACWY) Aged Out No longer eligible based on patient's age to complete this topic MENINGOCOCCAL VACCINES (B) Aged Out N o longer eligible based on patient's age to complete this topic PNEUMOCOCCAL VACCINES (0-49 years) Aged Out No longer eligible based on patient's age to complete this topic Medical Devices Not on file Insurance [address] [place] [id number] [facility] [address] [id number] [facility] [place] [id number] [facility] Care Teams Instant Potato Processor Relationship Specialty Start Date End Date Pcp, Unknown PCP - General 02/01/20 Additional Source Comments The information contained in this document represents components of the legal health record. It is not the complete legal health record.[facility]
--- OUTSIDE RECORDS SUMMARY | 2024-11-25 13:05 | XMS_ITS | Patient Health Record ---
Author Organization Cruz Johnson MD Address [address] [place] [phone] Care Team Providers Care Process Design Engineer Name Role Phone Cruz Johnson Primary Care Provider Allergies No Known Allergies Reason For Referral No Information Medications Medication SIG (Take, Route, Frequency, Duration) [...] Administration Date Status Comme nts Fluarix Quadrivalent Unknown 12/17/2022 Refused Fluarix Quadrivalent - 150 Unknown 12/01/2023 Refused [...] Never (0 point) Points 4 Interpretation Positive Problems Problem Type SNOMED Code ICD Code Onset Dates Problem Status W/U Status Risk Notes Problem Hypercalcemia (61137039) Hypercalcemia (E83.52) Active confirmed Problem 677947900 Lumbar disc disease (M51.9) Active confirmed Problem Environmental allergy (012977989) Environmental allergies (Z91.09) Active confirmed Vital Signs Blood pressure diastolic 62 mm Hg 12/01/2023 Height 68.5 in 12/01/2023 Blood pressure systolic 98 mm Hg 12/01/2023 Weight 192 lbs 12/01/2023 BMI 28.77 kg/m2 12/01/2023 Encounters Encounter Location Date Provider Diagnosis Cruz Johnson MD [address] [place] [address] Drive [address] [place] [phone] 12/01/2023 Cruz Johnson Personal history of pneumonia Z87.01 ; Annual physical exam Z00.00 ; Elevated fasting blood sugar R73.01 and Depression screening Z13.31 Cruz Johnson MD [address] [place] [address] Drive [address] [place] [phone] 11/25/2024 Cruz Johnson Blood tests for routine general physical examination Z00.00 and Hypercalcemia E83.52 Assessments Encounter Date Diagnosis (ICD Code) Assessment Notes Treatment Notes Treatment Clinical Notes Section Notes 12/01/2023 Personal history of pneumonia (ICD-10 - Z87.01) ORDER PRINTED AND GIVEN TO PATIENT, pending diagnostic testing 12/01/2023 Annual physical exam (ICD-10 - Z00.00) labs reviewed and discussed with patient 11/25/2024 Blood tests for routine general physical examination (ICD-10 - Z00.00) 12/01/2023 Elevated fasting blood sugar (ICD-10 - R73.01) maintain good weight, stable 11/25/2024 Hypercalcemia (ICD-10 - E83.52) 12/01/2023 Depression screening (ICD-10 - Z13.31) negative screen Plan Of Treatment Pending Test Test Name Order Date XR CHEST 2 VIEW PA & LAT 12/01/2023 Complete Blood Count Auto Diff 5 Comprehensive [place]. Panel Fast Lipid Panel 11/25/2024 UA ClnCatch+Micro w/rflx Cult 11/25/2024 Future Test Test Name Order Date XR CHEST 2 VIEW PA & LAT 05/19/2023 Next Appt Details Provider Name:Cruz Camacho ier, 12/09/2024 09:00:00 AM, [address] [place] [address], [address], [place], [place], [phone], Insurance Providers Payer Name Payer Address Payer Phone Subscriber Number Group Number Insured Name Patient Relationship to Insured Coverage Start Date Coverage End Date [facility] [address] [facility] [address] [facility] [place] [id number] Juaquin Crystal Self - patient is the insured
== END 2024-11-25 11:11 | disposition home or self-care (01) ==
LOC: HO.LNP 11:10
PROVIDERS: Visit Provider Internal Medicine
DX: Z00.00 Encounter for general adult medical examination without abnormal findings (principal); Z13.6 Encounter for screening for cardiovascular disorders; E83.52 Hypercalcemia
CPT/HCPCS: 80053; 80061; 81001; 85025